=== PATIENT | female | born 1995 | race Caucasian/White ===

== ENCOUNTER 2018-05-06 08:08 | Emergency (ER) | payer SELFPAY ==
[~2018-05-06] VITALS: Ht 170.2 cm; Wt 49.9 kg
[2018-05-06] MEDS ORDERED: VENL37.55 PO (08:19)
[2018-05-06] MEDS ORDERED: NORE-97 PO (08:19)
[2018-05-06] MEDS ORDERED: LORAZEPAM 2 MG/1 ML VIAL ONE (08:26)
[2018-05-06] MEDS ORDERED: LORAZEPAM 2 MG/1 ML VIAL IV ONE (08:30)
[2018-05-06 08:37] LABS: BASOPHILS % (AUTO) 0.3 % (0.0-2.0); EOSINOPHILS # (AUTO) 0.1 K/uL (0.0-0.7); EOSINOPHILS % (AUTO) 1.2 % (0.0-7.0); HEMATOCRIT 36.5 % (31.2-41.9); HEMOGLOBIN 12.4 g/dL (10.9-14.3); LYMPHOCYTES # (AUTO) 1.9 K/uL (20.0-40.0); LYMPHOCYTES % (AUTO) 15.8 % (20.5-51.5); MEAN CORPUSCULAR HEMOGLOBIN 34.1 uug (24.7-32.8); MEAN CORPUSCULAR HGB CONC 34 g/dL (32.3-35.6); MEAN CORPUSCULAR VOLUME 100.2 fL (75.5-95.3); MONOCYTES # (AUTO) 0.4 K/uL (2.0-10.0); MONOCYTES % (AUTO) 3.3 % (0.0-11.0); NEUTROPHILS # (AUTO) 9.4 K/uL (1.8-8.9); NEUTROPHILS % (AUTO) 79.4 % (38.5-71.5); PLATELET COUNT (AUTO) 261 K/uL (179-408); RED BLOOD CELL COUNT(AUTO) 3.65 MIL/uL (3.63-4.92); WHITE BLOOD COUNT (AUTO) 11.9 K/uL (3.8-11.8)
[2018-05-06 08:42] LABS: CREATININE 0.9 mg/dL (0.6-1.3)
[2018-05-06] MEDS ORDERED: ONDANSETRON IV *ER 4 MG/2 ML VIAL IV ONE (08:45)
[2018-05-06 08:48] LABS: BILIRUBIN,DIRECT 0.1 mg/dL (0.0-0.2); BILIRUBIN,TOTAL 0.4 mg/dL (0.2-1.0); TOTAL PROTEIN, SERUM 7.9 g/dL (6.4-8.2)
--- NOTE | 2018-05-06 08:51 | NUR ---
pt walked into bathroom with steady gait.
[2018-05-06] MEDS ORDERED: ONDANSETRON 4 MG/2 ML VIAL ONE (08:52)
[2018-05-06 09:14] LABS: *BILIRUBIN,URIN NEGATIVE (NEGATIVE); *BLOOD, URINE NEGATIVE (NEGATIVE); *CLARITY,URINE CLEAR (CLEAR); *COLOR,URINE YELLOW (YELLOW); *KETONES,URINE 4+ (NEGATIVE); *PROTEIN,URINE 1+ (NEGATIVE); *UROBILINOGEN,URINE 0.2 E.U./dl (NORMAL); LEUKOCYTE ESTERASE ,URINE TRACE (NEGATIVE); NITRITE, URINE NEGATIVE (NEGATIVE); PH,URINE 8.5 (5.0-8.0); UGLUCOSE NEGATIVE (NEGATIVE)
[2018-05-06 09:15] LABS: BACTERIA,URINE FEW /HPF (NONE SEEN); RBC,URINE 0-3 /HPF (0-3); SQUAMOUS EPITHELIAL CELL,UR MODERATE /HPF (NONE SEEN)
--- NOTE | 2018-05-06 09:57 | NUR ---
Patient discharged to home in stable conditon. Written and verbal after care instructions given. Patient verbalizes understanding of instructions.pt walks in steady gait. pt says feels better, pt with so.
[2018-05-06 09:58] VITALS: BP 127/75
== END 2018-05-06 10:01 | disposition home or self-care (01) ==
LOC: ER 08:08
DX: F41.9 Anxiety disorder, unspecified (principal)
CPT/HCPCS: 36415; 80048; 80076; 81001; 83690; 84703; 85025; 96374; 96375; 99284; A4663; J2060; J2405; J7030